=== PATIENT | male | born 1945 | race Caucasian/White ===

== ENCOUNTER → 2016-06-04 | Outpatient (CLI) | payer MEDICARE, OTHER | LOC: LAB 12:38 | DX: Z51.81 Encounter for therapeutic drug level monitoring (principal); Z79.01 Long term (current) use of anticoagulants; I27.82 Chronic pulmonary embolism | CPT/HCPCS: 36415; 85610 ==

== ENCOUNTER → 2016-07-09 | Outpatient (CLI) | payer MEDICARE, OTHER | LOC: LAB 14:26 | DX: Z51.81 Encounter for therapeutic drug level monitoring (principal); I27.82 Chronic pulmonary embolism; Z79.01 Long term (current) use of anticoagulants | CPT/HCPCS: 36415; 85610 ==

== ENCOUNTER → 2016-07-23 | Outpatient (CLI) | payer MEDICARE, OTHER | LOC: LAB 09:23 | DX: Z51.81 Encounter for therapeutic drug level monitoring (principal); I27.82 Chronic pulmonary embolism; Z79.01 Long term (current) use of anticoagulants | CPT/HCPCS: 36415; 85610 ==

== ENCOUNTER → 2016-08-27 | Outpatient (CLI) | payer MEDICARE, OTHER | LOC: LAB 10:46 | DX: Z51.81 Encounter for therapeutic drug level monitoring (principal); I48.91 Unspecified atrial fibrillation; Z79.01 Long term (current) use of anticoagulants; E78.5 Hyperlipidemia, unspecified | CPT/HCPCS: 36415; 80061; 85610 ==

== ENCOUNTER → 2016-09-11 | Outpatient (CLI) | payer MEDICARE, OTHER | LOC: LAB 10:18 | DX: Z51.81 Encounter for therapeutic drug level monitoring (principal); I27.82 Chronic pulmonary embolism; Z79.01 Long term (current) use of anticoagulants | CPT/HCPCS: 36415; 85610 ==

== ENCOUNTER 2016-09-13 14:56 | Emergency (ER) | payer MEDICARE, OTHER | END 2016-09-13 18:00 | disposition left against medical advice (07) | LOC: ER1 14:56 | DX: Z53.21 Procedure and treatment not carried out due to patient leaving prior to being seen by health care provider (principal) ==

== ENCOUNTER 2020-07-27 09:58 | Observation (INO) | payer MEDICARE, OTHER ==
[~2020-07-27] VITALS: Ht 180.3 cm; Wt 98.5 kg
[~2020-07-27 09:58] MED LIST: VITAMIN D21250 MCG PO; WARFARIN SODIU7.5 MG PO; ZOFRAN 4 MG TAB4 MG PO
[2020-07-27 10:51] LABS: HEMOGLOBIN 10.8 gm/dl (14.0-17.5); RED BLOOD COUNT 4.66 M/UL (4.20-5.50); WHITE BLOOD COUNT 9.7 K/UL (4.5-11.0)
[2020-07-27 11:16] LABS: BUN/CREATININE RATIO 15 (0-10)
[2020-07-27] MEDS ORDERED: CLOPIDOGREL75 MG PO (14:56)
[2020-07-27] MEDS ORDERED: TERAZOSIN HCL5 MG PO (14:57)
[2020-07-27] MEDS ORDERED: COLACE 100MG C100 MG PO (17:14)
[2020-07-27] MEDS ORDERED: DULCOLAX5 MG PO (17:15)
[2020-07-27] MEDS ORDERED: WARFARIN SODIUM5 MG PO (17:16)
[2020-07-27] MEDS ORDERED: LISINOPRIL10 MG PO (17:17)
[2020-07-27] MEDS ORDERED: PROTONIX40 MG PO (17:17)
[2020-07-27] MEDS ORDERED: ASPIRIN EC81 MG PO (17:18)
[2020-07-27] MEDS ORDERED: PROSCAR5 MG PO (17:18)
[2020-07-27] MEDS ORDERED: CRESTOR10 MG PO (17:19)
[2020-07-27] MEDS ORDERED: VITAMIN C1000 MG PO (17:19)
[2020-07-27] MEDS ORDERED: FERROUS SULFAT324 MG PO (17:19)
[2020-07-27] MEDS ORDERED: B COMPLEX1 EACH PO (17:21)
[2020-07-27] MEDS ORDERED: MECLIZINE HCL25 MG PO (17:22)
--- NOTE | 2020-07-28 02:10 | NUR ---
LAB INTO DRAW PATIENTS AM [facility] AND [facility] AT THIS TIME, PATIENT UPSET THAT HE IS BEING AWOKE PER PATIENT STATEMENT "FOR THE FOURTH TIME SINCE MARIAM FELL ASLEEP." THIS RN FROM [facility]ES [facility] CAN HEAR PATIENT ADAMANTLY TELLING SEPTIC TANK SETTER WHERE TO STICK HIM AT. SEPTIC TANK SETTER INFORMS PATIENT THAT SHE CANNOT STICK HIM ABOVE AND IV, NOR DIRECTLY BESIDE IV WHERE PATIENT IS WANTING TO BE STUCK. PATIENT SOUNDS UNPLEASANT, SAYING " I TOLD YOU WHERE I WANT YOU TO STICK ME, AND THATS WHERE I WANT TO BE STUCK NO WHERE ELSE, IM GONNA BE BRUISED UP , IM ON BLOOD THINNER." ER SEPTIC TANK SETTER TRINI AGAIN INFORMS PATIENT THAT THERE ARE CERTAIN GUIDELINES SHE HAS TO FOLLOW AND PATIENT AGAIN IS UNPLEASANT AND TELLS HER HE ONLY WANTS STUCK WHERE HE WANTS TO BE STUCK. SEPTIC TANK SETTER VOICES THAT SOMEONE ELSE WILL COME TO TRY AND ATTEMPT LAB DRAW ON SAID PATIENT. PATIENT IS CONTINUING TO BE MONITORED, HAS NO OTHER COMPLAINTS AT THIS TIME OTHER THAN BEING AWOKEN. PATIENT REMAINS ON DIESEL ENGINE MECHANIC APPRENTICE NOTED TO BE IN SR HR 88. NAD NOTED. PATIENT IS P.W.D. BED ALARM IS ON DUE TO PATIENT ADMISSION OF DIZZINESS/WEAKNESS, BEDSIDE TABLE AND CALL LIGHT WITHIN REACH, ROOM DIRECTLY ACROSS FROM NURSES [facility].
[2020-07-28 06:41] LABS: HEMOGLOBIN 9.4 gm/dl (14.0-17.5)
[2020-07-28 06:52] LABS: RED BLOOD COUNT 4.16 M/UL (4.20-5.50); WHITE BLOOD COUNT 6.9 K/UL (4.5-11.0)
[2020-07-28 07:00] LABS: BUN/CREATININE RATIO 14 (0-10)
[2020-07-28] MEDS ORDERED: MECLIZINE HCL25 MG PO (10:29)
--- NOTE | 2020-07-29 10:51 | NUR ---
PT GRIPING ABUT HIS MEDS NOT BEING ORDERED , PROTONIX AND OTHERS NOT BEING ORDERED HE TAKES THEM AT HOME SOME BEING HELD PER MD NOT SURE WHY NOT BUT I INFORMED DR GUTIERREZ AND ALSO HAD LOVE RUSSO TO TALK TO HIM BECAUSE HE WAS BEING SO RUDE AND LOUD WITH ME.
--- NOTE | 2020-07-29 16:53 | NUR ---
PT HAS BEEN VERY AGITATED SINCE THE MOMENT I WALKED IN HIS ROOM THIS MORNING , STARTED WITH HE WASNT GETTING HIS MEDS LIKE HE TAKES THEM AT HOME, TO HE WAS HAVING TO BEG FOR HIS MEDS EVEN IN THE ER , I RELAYED ALL HIS COMPLAINTS TO DR GUTIERREZ WITH THE FIRST ONE AT 930 THIS MORNING , I COULD DO NOTHING TO MAKE HIM FEEL ANY BETTER . 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 DR GUTIERREZ CAME TO TALK TO HIM AGAIN , I THINK THAT WAS THE 3OR 4TH TIME SHE HAD TRIED TO TALK TO HIM TODAY
== END 2020-07-29 16:09 | disposition home or self-care (01) ==
LOC: ER1 09:58 → MED SURG 4 14:33 → CDU 14:33 → MED SURG 4 21:56
PROVIDERS: Physician Assistant Medical; ADMIT Internal Medicine
DX: R42 Dizziness and giddiness (principal); I25.10 Atherosclerotic heart disease of native coronary artery without angina pectoris; I10 Essential (primary) hypertension; K21.9 Gastro-esophageal reflux disease without esophagitis; I82.409 Acute embolism and thrombosis of unspecified deep veins of unspecified lower extremity; E78.5 Hyperlipidemia, unspecified; Z95.1 Presence of aortocoronary bypass graft; Z79.899 Other long term (current) drug therapy; Z87.891 Personal history of nicotine dependence; Z82.49 Family history of ischemic heart disease and other diseases of the circulatory system; Z20.822 Contact with and (suspected) exposure to COVID-19
CPT/HCPCS: ECHO; 70450; 71045; 80048; 80053; 81001; 82550; 82553; 83735; 83874; 84484; 85025; 85027; 85610; 93005; 93306; 93880; 96374; 96375; 96376; 97116-GP-CQ; 97162; 97165; 97530; 99285; C9113; G0378; J0360; J2405; U0002